=== PATIENT | female | born 1975 | race Caucasian/White ===

== ENCOUNTER → 2016-08-11 | Outpatient (CLI) | payer OTHER ==
[~2016-08-11] MED LIST: AMPH12.5 PO; DEXT5TAB17 PO; DOXYCYCLINE PO; GABA300C10 PO; GLAT20KI SQ; IBUP-1222 PO; LISD30CA4 PO; OXYC-229 PO; QUET25TA5 PO; ZOLP10TA PO; [UNRECOGNIZED DRUG - REMARK] PO; aleve
== END | disposition home or self-care (01) ==
LOC: CFH 13:30
PROVIDERS: ATTEND Physician Assistant
DX: Z02.9 Encounter for administrative examinations, unspecified (principal)

== ENCOUNTER 2016-09-03 19:08 | Emergency (ER) | payer OTHER ==
[2016-09-03] MEDS ORDERED: SODIUM CHLORIDE 0.9% 1,000 ML IV ONE (19:31)
[2016-09-03] MEDS ORDERED: ONDANSETRON 2MG/ML, 2ML IVPush ONE (20:00)
[2016-09-03] MEDS ORDERED: SODIUM CHLORIDE FLUSH 10ML SYR IVF ONE (20:00)
[2016-09-03] MEDS ORDERED: OMNIPAQUE 350 MG/ML, 100ML BOTTLE ONE (20:03)
[2016-09-03] MEDS ORDERED: ONDANSETRON 2MG/ML, 2ML ONE (20:04)
[2016-09-03] MEDS ORDERED: MORPHINE SULFATE 4 MG/ML, 1ML ONE ×2 (20:04→21:18)
[2016-09-03] MEDS: MORPHINE SULFATE 4 MG/ML, 1ML IVPush PRN ×2 (20:08→21:22)
[2016-09-03 20:24] LABS: BLOOD UREA NITROGEN 15 mg/dL (7-18)
[2016-09-03 20:26] LABS: PATH.CAST-FLAG NOT PRESENT; SPERM-FLAG NOT PRESENT; SRC-FLAG NOT PRESENT; XTAL-FLAG NOT PRESENT; YLC-FLAG NOT PRESENT
[2016-09-03 20:32] LABS: ASPARTATE AMINO TRANSFERASE 16 U/L (15-37)
[2016-09-03] MEDS ORDERED: MORPHINE SULFATE 4 MG/ML, 1ML IVPush ONE (21:30)
[2016-09-03] MEDS ORDERED: MAALOX/HYOSCYAMINE/LIDOCAINE 45 ML BOTTLE PO ONE (21:30)
[2016-09-03 22:43] VITALS: BP 102/66
== END 2016-09-03 22:47 | disposition home or self-care (01) ==
LOC: ED 21:17
DX: R10.84 Generalized abdominal pain (principal); R11.0 Nausea; Z87.891 Personal history of nicotine dependence
CPT/HCPCS: 36415; 71010; 74177; 80053; 81001; 83690; 84703; 85025; 96361; 96374; 96375; 96376; 99285; J2405; J7030; Q9967

== ENCOUNTER → 2016-09-13 | Outpatient (CLI) | payer OTHER ==
[~2016-09-13] MED LIST changes: +GADOBUTROL 7.5 MMOL/7.5 ML PFS ONE
== END | disposition home or self-care (01) ==
LOC: RAD 14:58
PROVIDERS: ATTEND Physician Assistant
DX: G93.89 Other specified disorders of brain (principal); R90.82 White matter disease, unspecified
CPT/HCPCS: 70553; A9585; J1642

== ENCOUNTER 2017-12-22 22:28 | Emergency (ER) | payer OTHER ==
[~2017-12-22] VITALS: Ht 160 cm; Wt 65.0 kg
[~2017-12-22 22:28] MED LIST changes: +GABA-826 PO; -GADOBUTROL 7.5 MMOL/7.5 ML PFS ONE; -LISD30CA4 PO; +LISD30CA5 PO; +MIRT15TA4 PO; +MODA200T2 PO; -OXYC-229 PO; +OXYC-307 PO; +TRET15GE TP
[2017-12-22 22:32] VITALS: BP 108/58
== END 2017-12-22 23:27 | disposition home or self-care (01) ==
LOC: ED 23:00
DX: T81.30XA Disruption of wound, unspecified, initial encounter (principal); Z87.891 Personal history of nicotine dependence
CPT/HCPCS: 99281

== ENCOUNTER 2018-01-20 10:24 | Emergency (ER) | payer OTHER ==
[~2018-01-20] VITALS: Ht 167.6 cm; Wt 63.5 kg
[2018-01-20] MEDS ORDERED: KETOROLAC 30 MG/1 ML IVPush ONE (11:30)
[2018-01-20] MEDS ORDERED: KETOROLAC 30 MG/1 ML ONE (12:19)
[2018-01-20 12:40] LABS: BASOPHILS # (AUTO) 0.09 x10^3/uL (0-0.1); BASOPHILS % (AUTO) 1 % (0-1); EOSINOPHILS # (AUTO) 0.12 x10^3/uL (0-0.4); EOSINOPHILS % (AUTO) 2 % (1-7); LYMPHOCYTES # (AUTO) 3.33 x10^3/uL (1-3.4); LYMPHOCYTES % (AUTO) 44 % (22-44); MD NO; MEAN CORPUSCULAR HEMOGLOBIN 29.1 pg (27.0-34.8); MEAN CORPUSCULAR HGB CONC 34.2 g/dL (32.4-35.8); MEAN PLATELET VOLUME 9.2 fL (7.4-10.4); MONOCYTES # (AUTO) 0.47 x10^3/uL (0.2-0.8); MONOCYTES % (AUTO) 6 % (2-9); NEUTROPHILS # (AUTO) 3.62 x10^3/uL (1.8-6.8); NEUTROPHILS % (AUTO) 47 % (42-75); PLATELET COUNT 205 x10^3/uL (130-400); RED CELL DISTRIBUTION WIDTH 13.4 % (9.6-15.2)
[2018-01-20 12:49] LABS: ALANINE AMINOTRANSFERASE 15 U/L (12-78); ALBUMIN 3.5 g/dL (3.4-5.0); ANION GAP 7 mmol/L (5-15); CALCIUM 8.5 mg/dL (8.5-10.1); CHLORIDE 110 mmol/L (98-107); CREATININE 0.72 mg/dL (0.55-1.02)
[2018-01-20 12:55] LABS: ALKALINE PHOSPHATASE 46 U/L (45-117); BILIRUBIN,TOTAL 0.6 mg/dL (0.2-1.0); TOTAL PROTEIN 6.3 g/dL (6.4-8.2)
[2018-01-20] MEDS ORDERED: ONDANSETRON ODT 4 MG ONE (13:57)
[2018-01-20] MEDS ORDERED: ONDANSETRON ODT 4 MG PO ONE (14:00)
[2018-01-20] MEDS ORDERED: ACETAMINOPHEN 500 MG TABLET PO ONE (14:30)
[2018-01-20 14:36] LABS: MICROSCOPIC NOT IND
[2018-01-20] MEDS ORDERED: ACETAMINOPHEN 500 MG TABLET ONE (14:36)
[2018-01-20 14:44] LABS: CULTURE INDICATED? NO
[2018-01-20 15:34] VITALS: BP 104/57
== END 2018-01-20 19:34 ==
LOC: ED 13:56
DX: N83.202 Unspecified ovarian cyst, left side (principal)
CPT/HCPCS: 36415; 74021; 74177; 76830; 80053; 81003; 83690; 84703; 85025; 96374; 99285; J1885; Q0162

== ENCOUNTER 2018-02-27 18:22 | Day surgery (SDC) | payer OTHER ==
[~2018-02-27] VITALS: Ht 167.6 cm; Wt 62.0 kg
[2018-02-27 13:39] VITALS: BP 110/66
[2018-02-27] MEDS: FENTANYL PF 100 MCG/2ML IV PRN ×2 (16:15→16:45)
[2018-02-27] MEDS: HYDROcodone/APAP 5/325 TABLET PO PRN ×2 (18:08→21:59)
[~2018-02-27 18:22] MED LIST changes: +ACETAMINOPHEN 500 MG TABLET PO ONE; +ALBUTEROL/IPRATROPIUM 2.5MG/0.5MG, 3 ML NPPB PRN; +BUPIVACAINE/PF-EPI 0.25% 1:200K ONE; +CEFAZOLIN 1,000 MG ONE; +DEXAMETHASONE 4 MG/ML, 1ML ONE; +DIAZEPAM 5 MG/ML, 2ML IVPush PRN; +EPHEDRINE 50 MG/ML, 1ML IM PRN; +FENTANYL PF 100 MCG/2ML ONE; +FENTANYL PF 250 MCG/5ML ONE; +GABAPENTIN 300 MG CAPSULE PO ONE; +GLYCOPYRROLATE 0.2MG/1ML, 5ML ONE; +HALOPERIDOL 5 MG/ML IV PRN; +HALOPERIDOL 5 MG/ML ONE; +HYDROcodone/APAP 5/325 TABLET ONE; +HYDROmorphone 1 MG/ML, 1ML IV PRN; +IBUPROFEN 600 MG TABLET PO PRN; +INDIGO CARMINE 0.8%, 5ML ONE; +KETOROLAC 30 MG/1 ML ONE; +LABETALOL 5MG/ML, 20ML IV PRN; +LACTATED RINGERS 1,000 ML IV SCH; +MEPERIDINE/PF 25MG/0.5ML IVPush PRN; +MIDAZOLAM 1 MG/ML, 2ML IV PRN; +MIDAZOLAM 1 MG/ML, 2ML ONE; +NEOSTIGMINE 1 MG/ML, 10ML ONE; +ONDANSETRON 2MG/ML, 2ML IV PRN; +ONDANSETRON 2MG/ML, 2ML IVPush PRN; +ONDANSETRON 2MG/ML, 2ML ONE; +ONDANSETRON ODT 8 MG PO ONE; +OXYcodone 5 MG/5 ML ORAL.SOL UDC PO PRN; +PLEASE ENTER HEIGHT AND WEIGHT MC SCH; +PROMETHAZINE 25 MG SUPP PR ONE; +PROMETHAZINE 25 MG SUPP PR PRN; +PROPOFOL 10 MG/ML, 20ML ONE; +ROCURONIUM 10MG/ML,5ML ONE; +SCOPOLAMINE PATCH, 1.5MG PATCH.TD72 TD PRN
[2018-02-27] MEDS ORDERED: DIAZEPAM 5 MG TABLET PO PRN (19:55)
== END 2018-02-27 23:59 | disposition home or self-care (01) ==
LOC: OR 18:22 → 4NOR 18:44 → OR 23:59
PROVIDERS: ATTEND Obstetrics & Gynecology Female Pelvic Medicine and Reconstructive Surgery
DX: N83.12 Corpus luteum cyst of left ovary (principal); N80.0 Endometriosis of uterus; Z98.890 Other specified postprocedural states; Z88.5 Allergy status to narcotic agent
CPT/HCPCS: 58661; 58662; 81025; 88305; J0690; J1100; J1630; J1885; J2250; J2405; J2704; J2710; J3010; J3360; J3490; J7120; Q0162; G0378

== ENCOUNTER 2018-11-20 07:28 | Outpatient (CLI) | payer OTHER ==
[~2018-11-20] VITALS: Ht 167.6 cm; Wt 62.7 kg
[~2018-11-20 07:28] MED LIST changes: -ACETAMINOPHEN 500 MG TABLET PO ONE; -ALBUTEROL/IPRATROPIUM 2.5MG/0.5MG, 3 ML NPPB PRN; -BUPIVACAINE/PF-EPI 0.25% 1:200K ONE; -CEFAZOLIN 1,000 MG ONE; -DEXAMETHASONE 4 MG/ML, 1ML ONE; -DIAZEPAM 5 MG/ML, 2ML IVPush PRN; -EPHEDRINE 50 MG/ML, 1ML IM PRN; -FENTANYL PF 100 MCG/2ML ONE; -FENTANYL PF 250 MCG/5ML ONE; -GABAPENTIN 300 MG CAPSULE PO ONE; -GLYCOPYRROLATE 0.2MG/1ML, 5ML ONE; -HALOPERIDOL 5 MG/ML IV PRN; -HALOPERIDOL 5 MG/ML ONE; -HYDROcodone/APAP 5/325 TABLET ONE; -HYDROmorphone 1 MG/ML, 1ML IV PRN; -IBUPROFEN 600 MG TABLET PO PRN; -INDIGO CARMINE 0.8%, 5ML ONE; -KETOROLAC 30 MG/1 ML ONE; -LABETALOL 5MG/ML, 20ML IV PRN; -LACTATED RINGERS 1,000 ML IV SCH; -MEPERIDINE/PF 25MG/0.5ML IVPush PRN; -MIDAZOLAM 1 MG/ML, 2ML IV PRN; -MIDAZOLAM 1 MG/ML, 2ML ONE; -NEOSTIGMINE 1 MG/ML, 10ML ONE; -ONDANSETRON 2MG/ML, 2ML IV PRN; -ONDANSETRON 2MG/ML, 2ML IVPush PRN; -ONDANSETRON 2MG/ML, 2ML ONE; -ONDANSETRON ODT 8 MG PO ONE; -OXYcodone 5 MG/5 ML ORAL.SOL UDC PO PRN; -PLEASE ENTER HEIGHT AND WEIGHT MC SCH; -PROMETHAZINE 25 MG SUPP PR ONE; -PROMETHAZINE 25 MG SUPP PR PRN; -PROPOFOL 10 MG/ML, 20ML ONE; -ROCURONIUM 10MG/ML,5ML ONE; -SCOPOLAMINE PATCH, 1.5MG PATCH.TD72 TD PRN
[2018-11-20] MEDS ORDERED: NATALIZUMAB 300 MG in SODIUM CHLORIDE 0.9% 100 ML IV ONE (13:30)
[2018-11-20 13:53] VITALS: BP 100/64
== END 2018-11-20 23:59 | disposition home or self-care (01) ==
LOC: INFUSION 07:28
PROVIDERS: ATTEND Psychiatry & Neurology Neurology
DX: G35 Multiple sclerosis (principal); G89.29 Other chronic pain; F11.11 Opioid abuse, in remission; Z79.2 Long term (current) use of antibiotics; Z79.01 Long term (current) use of anticoagulants; Z79.899 Other long term (current) drug therapy; Z87.891 Personal history of nicotine dependence
CPT/HCPCS: 96365; J2323

== ENCOUNTER 2018-12-18 12:59 | Outpatient (CLI) | payer OTHER ==
[~2018-12-18] VITALS: Ht 167.6 cm; Wt 62.0 kg
[2018-12-18 13:57] VITALS: BP 116/77
== END 2018-12-18 23:59 | disposition home or self-care (01) ==
LOC: INFUSION 12:59
PROVIDERS: ATTEND Psychiatry & Neurology Neurology
DX: G35 Multiple sclerosis (principal); G89.29 Other chronic pain; F11.11 Opioid abuse, in remission; Z79.2 Long term (current) use of antibiotics; Z79.01 Long term (current) use of anticoagulants; Z79.899 Other long term (current) drug therapy; Z87.891 Personal history of nicotine dependence
CPT/HCPCS: 96365; J2323

== ENCOUNTER 2019-04-03 08:00 | Outpatient (CLI) | payer OTHER ==
[~2019-04-03 08:00] MED LIST changes: +MIRT-34 PO; -MIRT15TA4 PO
[2019-04-03] MEDS ORDERED: VARE0.5T PO (12:29)
== END 2019-04-03 23:59 | disposition home or self-care (01) ==
LOC: INFUSION 08:00
PROVIDERS: ATTEND Psychiatry & Neurology Neurology
DX: G35 Multiple sclerosis (principal); G89.29 Other chronic pain; F11.11 Opioid abuse, in remission; Z79.2 Long term (current) use of antibiotics; Z79.01 Long term (current) use of anticoagulants; Z79.899 Other long term (current) drug therapy; Z87.891 Personal history of nicotine dependence
CPT/HCPCS: 99211; G0463

== ENCOUNTER 2019-04-10 13:48 | Outpatient (CLI) | payer OTHER ==
[2019-04-03 12:22] VITALS: BP 120/82
[~2019-04-10] VITALS: Ht 167.6 cm; Wt 62.0 kg
[~2019-04-10 13:48] MED LIST changes: +NATALIZUMAB 300 MG in SODIUM CHLORIDE 0.9% 100 ML IV ONE; +VARE0.5T PO
[2019-04-10 14:00] VITALS: BP 108/60
[2019-04-10] MEDS ORDERED: NATALIZUMAB 300 MG in SODIUM CHLORIDE 0.9% 100 ML IV ONE (14:30)
== END 2019-04-10 23:59 | disposition home or self-care (01) ==
LOC: INFUSION 13:48
PROVIDERS: ATTEND Psychiatry & Neurology Neurology
DX: G35 Multiple sclerosis (principal); Z79.2 Long term (current) use of antibiotics; F11.11 Opioid abuse, in remission; G89.29 Other chronic pain; Z79.01 Long term (current) use of anticoagulants; Z87.891 Personal history of nicotine dependence; Z79.899 Other long term (current) drug therapy
CPT/HCPCS: 96365; J2323; 99211; G0463

== ENCOUNTER 2019-05-15 14:26 | Outpatient (CLI) | payer BC, OTHER ==
[~2019-05-15] VITALS: Ht 167.6 cm; Wt 61.7 kg
[2019-05-15 14:20] VITALS: BP 112/73
[~2019-05-15 14:26] MED LIST changes: -NATALIZUMAB 300 MG in SODIUM CHLORIDE 0.9% 100 ML IV ONE
[2019-05-15] MEDS ORDERED: NATALIZUMAB 300 MG in SODIUM CHLORIDE 0.9% 100 ML IV ONE (15:00)
== END 2019-05-15 23:59 | disposition home or self-care (01) ==
LOC: INFUSION 14:26
PROVIDERS: ATTEND Psychiatry & Neurology Neurology
DX: G35 Multiple sclerosis (principal); F11.11 Opioid abuse, in remission; G89.29 Other chronic pain; Z79.01 Long term (current) use of anticoagulants; Z79.2 Long term (current) use of antibiotics; Z79.899 Other long term (current) drug therapy; Z87.891 Personal history of nicotine dependence
CPT/HCPCS: 96365; J2323

== ENCOUNTER 2019-06-12 14:43 | Outpatient (CLI) | payer BC ==
[2019-04-03 12:22] VITALS: BP 120/82
== END 2019-06-12 23:59 | disposition home or self-care (01) ==
LOC: INFUSION 14:43
PROVIDERS: ATTEND Psychiatry & Neurology Neurology
DX: Z02.9 Encounter for administrative examinations, unspecified (principal)